=== PATIENT | female | born 1990 | race African-American/Black ===

== ENCOUNTER 2023-07-16 17:26 | Emergency (ER) | payer BC ==
[~2023-07-16] VITALS: Ht 167.6 cm; Wt 91.0 kg
[2023-07-16 17:30] VITALS: O2SAT 98
[2023-07-16] MEDS: SODIUM CHLORIDE 0.9% 1,000 ML IV ONE (18:08)
[2023-07-16 18:45] LABS: BASOPHILS % 0.5 % (0.0-2.0); DIFFERENTIAL COMMENT 0; EOSINOPHILS % 3.5 % (0.0-5.0); HEMATOCRIT. 28.8 % (36.0-48.0); HEMOGLOBIN. 9.7 g/dL (12.0-16.0); LYMPHOCYTES % 13.7 % (20.0-50.0); MEAN CORPUSCULAR HEMOGLOBIN 26.2 pg (28.0-32.0); MEAN CORPUSCULAR HGB CONC 33.8 g/dL (31.0-37.0); MEAN CORPUSCULAR VOLUME 77.4 fL (81.0-99.0); MEAN PLATELET VOLUME 8.7 fl (7.4-10.4); MONOCYTES % 10.3 % (2.0-8.0); PLATELET 423 x1000/uL (130-400); RED BLOOD CELL COUNT 3.72 mill/uL (4.2-5.4); RED CELL DISTRIBUTION WIDTH 17.1 % (11.6-14.6); WHITE BLOOD COUNT 10.2 x1000/uL (4.5-11.0)
[2023-07-16 18:54] LABS: PROTHROMBIN TIME 10.9 sec (9.6-11.0)
[2023-07-16 19:03] LABS: ALANINE AMINOTRANSFERASE < 7 IU/L (10-49); ALBUMIN 4.5 g/dL (3.2-4.8); ASPARTATE AMINOTRANSFERASE 17 IU/L (<34); BILIRUBIN TOTAL 0.3 mg/dL (0.1-1.0); CALCIUM 9.7 mg/dL (8.7-10.4); CARBON DIOXIDE 22 mEq/L (21-32); CHLORIDE 108 mEq/L (98-107); CREATININE 1.1 mg/dL (0.6-1.0); GLUCOSE 105 mg/dL (70-105); POTASSIUM 4.2 mEq/L (3.5-5.1); PROTEIN TOTAL 8.2 g/dL (6.0-8.3); SODIUM 137 mEq/L (136-145); UREA NITROGEN BLOOD 19 mg/dL (9-23)
[2023-07-16 19:04] LABS: HCG SCREEN NEGATIVE
[2023-07-16 20:00] VITALS: TEMP 99.1
[2023-07-16 22:52] VITALS: BP 106/67; PULSE 110; RESP 19
[2023-07-16] MEDS: MORPHINE SULFATE 4 MG/ML INJ (FOR IV/IM USE) IV ONE (22:52)
[2023-07-16] MEDS: ONDANSETRON HCL 4MG/2ML INJ IV ONE (22:53)
== END 2023-07-16 23:43 | disposition left against medical advice (07) ==
LOC: ER 17:26 → CANBEDREQ 23:34 → ER 23:43
DX: R19.00 Intra-abdominal and pelvic swelling, mass and lump, unspecified site (principal); D64.9 Anemia, unspecified; Z90.710 Acquired absence of both cervix and uterus; Z85.42 Personal history of malignant neoplasm of other parts of uterus
CPT/HCPCS: 99285; 86870; 96374; 76856; 96361; 96375; 80053; 84703; 85025; 85610; 86850; 86900; 86901; 36415; J2405; J2270; J7030; 86920

== ENCOUNTER 2023-11-17 02:10 | Inpatient (IN) | payer BC ==
[2023-11-17] VITALS (7 sets, daily range): BP systolic 107–139; BP diastolic 55–79; PULSE 99–117; RESP 13–23; TEMP 97.9–98.4; O2SAT 98–100
[~2023-11-17] VITALS: Ht 165.1 cm; Wt 110.2 kg
[2023-11-17] MEDS: SODIUM CHLORIDE 0.9% 1000ML BAG (SEPSIS BOLUS) IV ONE (02:30)
[2023-11-17 02:51] LABS: HEMATOCRIT. 33.5 % (36.0-48.0); HEMOGLOBIN. 10.9 g/dL (12.0-16.0); MEAN CORPUSCULAR HEMOGLOBIN 30.2 pg (28.0-32.0); MEAN CORPUSCULAR HGB CONC 32.6 g/dL (31.0-37.0); MEAN CORPUSCULAR VOLUME 92.8 fL (81.0-99.0); MEAN PLATELET VOLUME 8.2 fl (7.4-10.4); PLATELET 368 x1000/uL (130-400); RED BLOOD CELL COUNT 3.61 mill/uL (4.2-5.4); RED CELL DISTRIBUTION WIDTH 21.9 % (11.6-14.6)
[2023-11-17 02:58] LABS: CHLORIDE 106 mEq/L (98-107); POTASSIUM 3.2 mEq/L (3.5-5.1); SODIUM 137 mEq/L (136-145)
[2023-11-17 02:59] LABS: CALCIUM 8.8 mg/dL (8.7-10.4); CARBON DIOXIDE 20 mEq/L (21-32); PROTHROMBIN TIME 10.9 sec (9.6-11.0)
[2023-11-17 03:00] LABS: DIFFERENTIAL COMMENT 1; WHITE BLOOD COUNT 47.7 x1000/uL (4.5-11.0)
[2023-11-17 03:04] LABS: CREATININE 0.8 mg/dL (0.6-1.0); GLUCOSE 137 mg/dL (70-105); UREA NITROGEN BLOOD 11 mg/dL (9-23)
[2023-11-17 03:06] LABS: ALANINE AMINOTRANSFERASE 29 IU/L (10-49); ALBUMIN 3.9 g/dL (3.2-4.8); ASPARTATE AMINOTRANSFERASE 22 IU/L (<34); BILIRUBIN DIRECT 0.1 mg/dL (<=3.0); BILIRUBIN TOTAL 0.5 mg/dL (0.1-1.0); PROTEIN TOTAL 6.4 g/dL (6.0-8.3)
[2023-11-17 03:13] LABS: HCG SCREEN NEGATIVE
[2023-11-17 03:33] LABS: LACTIC ACID 4.8 mmol/L (0.4-2.0)
[2023-11-17 04:07] LABS: ANISOCYTOSIS 1+; PLATELET ESTIMATE NORMAL
[2023-11-17] MEDS: VANCOMYCIN 1G PREMIX 200 ML IV NR (04:34)
[2023-11-17] MEDS: PIPERACILLIN/TAZO 3.375G/50ML 50 ML IV NR (04:36)
[2023-11-17] MEDS: MIDAZOLAM HCL 2 MG/2 ML VIAL IV NR (06:19)
[2023-11-17] MEDS: MORPHINE SULFATE 4 MG/ML INJ (FOR IV/IM USE) IV NR (06:20)
[2023-11-17] MEDS: MORPHINE SULFATE 2 MG/ML INJ (NOT FOR IM USE) IV PRN (10:25)
[2023-11-17] MEDS ORDERED: CLONAZEPAM 1MG TABLET PO SCH (10:30)
[2023-11-17] MEDS ORDERED: NALOXONE HCL 0.4MG/ML VIAL IV PRN (12:30)
[2023-11-17] MEDS: CLONAZEPAM 1MG TABLET PO SCH (13:07)
[2023-11-17] MEDS: HYDROMORPHONE HCL/PF 2MG/ML INJ IV PRN (13:10)
[2023-11-17] MEDS: PIPERACILLIN/TAZO 3.375G/50ML 50 ML IV SCH (14:32)
[2023-11-17] MEDS: SODIUM CHLORIDE 0.9% 1,000 ML IV SCH (14:32)
[2023-11-17] MEDS: PANTOPRAZOLE 40MG DR TABLET PO SCH (14:32)
[2023-11-17] MEDS: ENOXAPARIN 30MG/0.3ML SYR SUBCUT SCH (14:33)
[2023-11-17] MEDS: VANCOMYCIN 750MG/150ML (BAXTER) IV SCH (14:57)
[2023-11-17] MEDS: ONDANSETRON HCL 4MG/2ML INJ IV PRN (15:16)
[2023-11-17] MEDS: ACETAMINOPHEN 325MG TABLET PO PRN (20:38)
[2023-11-17] MEDS: AZITHROMYCIN 500 MG TABLET PO SCH (23:03)
[2023-11-17] MEDS: VANCOMYCIN 1.25GM PMX (XELLIA) 250 ML IV SCH (23:03)
[2023-11-18] VITALS (12 sets, daily range): BP systolic 96–148; BP diastolic 56–77; PULSE 89–105; RESP 13–18; TEMP 98.2–98.7; O2SAT 92–100
[2023-11-18 01:28] LABS: CREATINE KINASE MB FRACTION < 0.5 ng/mL (0.5-3.6); TROPONIN I HIGH SENSITIVITY 9 ng/L (3.0-34)
[2023-11-18 01:29] LABS: CREATINE KINASE 18 IU/L (34-145)
[2023-11-18 07:13] LABS: HEMATOCRIT. 27.9 % (36.0-48.0); HEMOGLOBIN. 9.2 g/dL (12.0-16.0); MEAN CORPUSCULAR HEMOGLOBIN 30.5 pg (28.0-32.0); MEAN CORPUSCULAR HGB CONC 32.9 g/dL (31.0-37.0); MEAN CORPUSCULAR VOLUME 92.6 fL (81.0-99.0); MEAN PLATELET VOLUME 8.5 fl (7.4-10.4); PLATELET 324 x1000/uL (130-400); RED BLOOD CELL COUNT 3.02 mill/uL (4.2-5.4); RED CELL DISTRIBUTION WIDTH 21.5 % (11.6-14.6)
[2023-11-18 07:19] LABS: DIFFERENTIAL COMMENT 1
[2023-11-18 07:20] LABS: CHLORIDE 107 mEq/L (98-107); POTASSIUM 4.2 mEq/L (3.5-5.1); SODIUM 139 mEq/L (136-145)
[2023-11-18 07:21] LABS: CARBON DIOXIDE 25 mEq/L (21-32)
[2023-11-18 07:22] LABS: CALCIUM 9.2 mg/dL (8.7-10.4)
[2023-11-18 07:26] LABS: CREATININE 0.6 mg/dL (0.6-1.0); GLUCOSE 86 mg/dL (70-105)
[2023-11-18 07:27] LABS: UREA NITROGEN BLOOD 9 mg/dL (9-23)
[2023-11-18] MEDS: DIPHENHYDRAMINE 50MG/ML VIAL IM PRN (13:27)
[2023-11-18 16:12] LABS: ANISOCYTOSIS 2+; PLATELET ESTIMATE NORMAL
[2023-11-19] VITALS (11 sets, daily range): BP systolic 92–131; BP diastolic 57–90; PULSE 91–107; RESP 11–20; TEMP 97.8–98.9; O2SAT 92–100
[2023-11-19] MEDS: LORAZEPAM 1MG TABLET PO PRN (00:05)
[2023-11-19] MEDS: HYDROMORPHONE HCL/PF 2MG/ML INJ IV PRN (02:20)
[2023-11-19] MEDS: DIPHENHYDRAMINE 50MG/ML VIAL IV PRN (03:51)
[2023-11-19 06:20] LABS: CHLORIDE 106 mEq/L (98-107); SODIUM 139 mEq/L (136-145)
[2023-11-19 06:21] LABS: CALCIUM 8.9 mg/dL (8.7-10.4); CARBON DIOXIDE 26 mEq/L (21-32)
[2023-11-19 06:26] LABS: CREATININE 0.7 mg/dL (0.6-1.0); GLUCOSE 82 mg/dL (70-105); UREA NITROGEN BLOOD 9 mg/dL (9-23)
[2023-11-19 07:38] LABS: HEMATOCRIT. 24.2 % (36.0-48.0); HEMOGLOBIN. 7.9 g/dL (12.0-16.0); MEAN CORPUSCULAR HEMOGLOBIN 30.3 pg (28.0-32.0); MEAN CORPUSCULAR HGB CONC 32.7 g/dL (31.0-37.0); MEAN CORPUSCULAR VOLUME 92.6 fL (81.0-99.0); MEAN PLATELET VOLUME 8.6 fl (7.4-10.4); PLATELET 293 x1000/uL (130-400); RED BLOOD CELL COUNT 2.61 mill/uL (4.2-5.4); RED CELL DISTRIBUTION WIDTH 20.9 % (11.6-14.6); WHITE BLOOD COUNT 17.1 x1000/uL (4.5-11.0)
[2023-11-19 08:43] LABS: DIFFERENTIAL COMMENT 1
[2023-11-19] MEDS ORDERED: DIPHENHYDRAMINE 50MG/ML VIAL IV PRN (13:15)
[2023-11-19] MEDS ORDERED: VANCOMYCIN 1G PREMIX 200 ML IV SCH (16:00)
[2023-11-19] MEDS ORDERED: HYDR2TAB4 MT (16:41)
[2023-11-19] MEDS ORDERED: AZIT500T8 PO (16:41)
[2023-11-19 16:56] LABS: ANISOCYTOSIS 1+; PLATELET ESTIMATE NORMAL
== END 2023-11-19 18:20 | disposition home or self-care (01) | DRG 871 ==
LOC: ER 02:12 → 5EST 04:30 → EDBEDREQTM 05:05 → EDBEDREQ 05:05 → 5EST 11-18 06:09
PROVIDERS: ADMIT Internal Medicine; ATTEND Internal Medicine
DX: A41.9 Sepsis, unspecified organism (principal); K65.9 Peritonitis, unspecified; E87.20 Acidosis, unspecified; C56.9 Malignant neoplasm of unspecified ovary; D70.9 Neutropenia, unspecified; E11.40 Type 2 diabetes mellitus with diabetic neuropathy, unspecified; R65.20 Severe sepsis without septic shock; D64.9 Anemia, unspecified; E87.6 Hypokalemia; Z90.710 Acquired absence of both cervix and uterus; Z92.21 Personal history of antineoplastic chemotherapy; Z79.899 Other long term (current) drug therapy
CPT/HCPCS: 36415; 71045; 71275; 74176; 80048; 80076; 80202; 82550; 82553; 83605; 84145; 84484; 84703; 85025; 86304; 86850; 86900; 87426; 87804; 93005; 93970; 99291; C1893; J1170; J1200; J1650; J2250; J2270; J2405; J2543; J3370; J7030

== ENCOUNTER 2024-06-14 07:48 | Emergency (ER) | payer BC ==
[~2024-06-14] VITALS: Ht 172.7 cm; Wt 90.0 kg
[~2024-06-14 07:48] MED LIST: AZIT500T8 PO; HYDR2TAB4 MT
[2024-06-14 07:50] VITALS: O2SAT 99
[2024-06-14 08:15] VITALS: BP 128/86; PULSE 100; RESP 16; TEMP 36.9; O2SAT 99
[2024-06-14] MEDS: MORPHINE SULFATE 4 MG/ML INJ (FOR IV/IM USE) IV ONE (08:19)
[2024-06-14] MEDS: ONDANSETRON HCL 4MG/2ML INJ IV ONE (08:20)
[2024-06-14] MEDS ORDERED: HYDROMORPHONE HCL/PF 2MG/ML INJ IV NR (08:30)
[2024-06-14] MEDS ORDERED: ONDANSETRON HCL 4MG/2ML INJ IV NR (08:45)
[2024-06-14] MEDS ORDERED: MORPHINE SULFATE 4 MG/ML INJ (FOR IV/IM USE) IV NR (08:45)
[2024-06-14] MEDS ORDERED: HYDROMORPHONE HCL/PF 1MG/ML INJ IV NR (10:15)
== END 2024-06-14 08:38 | disposition left against medical advice (07) ==
LOC: ER 08:04
DX: N93.9 Abnormal uterine and vaginal bleeding, unspecified (principal); C49.9 Malignant neoplasm of connective and soft tissue, unspecified; Z90.710 Acquired absence of both cervix and uterus
CPT/HCPCS: 99283; J1171